=== PATIENT | female | born 1995 | race Caucasian/White ===

== ENCOUNTER 2017-09-01 18:36 | Emergency (ER) | payer OTHER ==
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
[2017-09-01] MEDS ORDERED: Silver Sulfadiazine 1%* 20 GM TOPICAL ONE (20:19)
== END 2017-09-01 20:45 | disposition home or self-care (01) ==
LOC: UCCORT 18:36
DX: T23.241A Burn of second degree of multiple right fingers (nail), including thumb, initial encounter (principal); X19.XXXA Contact with other heat and hot substances, initial encounter; Y93.9 Activity, unspecified; Y92.219 Unspecified school as the place of occurrence of the external cause
CPT/HCPCS: 99202; A9270-GY; G0463